=== PATIENT | female | born 1955 | race Caucasian/White ===

== ENCOUNTER 2018-09-17 04:51 | Inpatient (IN) | payer MEDICARE, OTHER ==
[2018-09-17] MEDS ORDERED: Aspirin 325 MG TAB ONE (05:25)
[2018-09-17] MEDS ORDERED: Nitroglycerin 0.4 MG TAB (25 Tab Bottle) ONE (05:25)
[2018-09-17 05:28] LABS: Hemoglobin 14.8 g/dL (12.0-16.0); Mean Corpuscular HGB CONC 34.2 g/dL (32.0-36.0); Mean Corpuscular Hemoglobin 29.7 pg (27.0-31.0); Mean Corpuscular Volume 86.6 fL (78.0-98.0); Mean Platelet Volume 9.4 fL (7.4-10.4); Platelet Count 312 thou/uL (130-400); RBC Distribution Width 11.9 % (11.5-14.5); Red Blood Cell (RBC) Count 4.98 mill/uL (4.20-5.40); White Blood Cell (WBC) Count 27.6 thou/uL (4.8-10.8)
[2018-09-17 05:35] LABS: Band 1 % (5-11); Lymphocytes 3 % (21-51); MDiff Complete? YES; Monocytes 4 % (0-10); Neutrophil 92 % (42-75)
[2018-09-17 05:39] LABS: ALT (SGPT) 77 U/L (8-55); AST (SGOT) 91 U/L (5-34); Albumin 3.8 g/dL (3.4-4.8); Alkaline Phosphatase 163 U/L (40-150); Anion Gap 19 mmol/L (10-20); BUN (Urea Nitrogen) 59 mg/dL (9.8-20.1); Bilirubin, Total 0.7 mg/dL (0.2-1.2); Calc. Creatinine Clearance 0 mL/min (70-130); Carbon Dioxide 15 mmol/L (23-31); Chloride 104 mmol/L (98-107); Estimated GFR-MDRD 23; Globulin 3.8 g/dL (2.4-3.5); Lipase 58 U/L (8-78); Protein, Total 7.6 g/dL (6.0-8.3); Sodium 134 mmol/L (136-145)
[2018-09-17 05:42] LABS: Calcium 13.7 mg/dL (7.8-10.44); Glucose 160 mg/dL (80-115)
[2018-09-17] MEDS ORDERED: DOPamine 400 MG/D5W 250 ML 250 ML ONE (05:56)
[2018-09-17 05:59] LABS: CKMB 13.7 ng/mL (0-6.6)
[2018-09-17] MEDS ORDERED: Heparin 10,000 UNITS/ 10 ML VIAL SLOW IVP SCH (06:45)
[2018-09-17 06:46] LABS: INR-International Normal Ratio 1.2; Prothrombin Time 15.4 SEC (12.0-14.7)
[2018-09-17 06:51] LABS: PTT 22.2 SEC (22.9-36.1)
[2018-09-17] MEDS ORDERED: traMADol HCl 50 MG TAB PO PRN (07:35)
[2018-09-17] MEDS ORDERED: Nitroglycerin 0.4 MG TAB (25 Tab Bottle) SL PRN (07:35)
[2018-09-17] MEDS ORDERED: Acetaminophen/Codeine 30-300mg Tablet PO PRN (07:35)
[2018-09-17] MEDS ORDERED: Sodium Chloride 0.9% 200 ML IV PRN (07:45)
[2018-09-17] MEDS ORDERED: Sodium Chloride 0.9% 1,000 ML IV SCH (07:45)
--- NOTE | 2018-09-17 08:19 | HP ---
CHIEF COMPLAINT: Shortness of breath. HISTORY OF PRESENT ILLNESS: Ms. Erazo is a pleasant 63-year-old white female who comes to the hospital for shortness of breath. Her symptoms started on Thursday. She became short of breath and lightheaded, felt diaphoretic, vomiting and nausea. She did not come to the hospital at that time. She just kind of went through it. The next day, she was still somewhat dizzy, but her shortness of breath began to get worse and worse. On Thursday, just 2 days ago, she was so short of breath that she has had to go see one of the physicians in her town at [place] and she had a chest x-ray done and was told she may have bronchitis and was placed on antibiotics. She then continued to get even more short of breath. Last evening, she noted that she could not even sleep because she was so short winded, so she decided to come in for evaluation. In the ER, an EKG was done and she was found to have what appeared to be an inferior ST-elevation AR and complete heart block. She denies any chest pain, tightness or pressure and a sensation of diaphoresis and nausea that she had on Thursday, she has not had since. She has only been shortness of breath. On her arrival, her troponin was already at 40 and her inferior leads already queued up. PAST MEDICAL HISTORY: Seasonal allergies. PAST SURGICAL HISTORY: 1. Cholecystectomy. 2. Tubal ligation. SOCIAL HISTORY: Former smoker, quit a long time ago. No alcohol or drugs. OUTPATIENT MEDICATIONS: 1. Doxycycline given to her recently. 2. Methylprednisolone DosePak given to her recently. 3. ProAir given to her recently. ALLERGIES: NO KNOWN DRUG ALLERGIES. REVIEW OF SYSTEMS: 12-point review of systems was done and was found to be negative other than stated in the history of present illness. PHYSICAL EXAMINATION: VITAL SIGNS: Pulse 38, respiratory rate 20, temperature 98.2, saturating 98% on 2 L nasal cannula, and blood pressure 122/55. GENERAL: Awake, alert, and oriented x3. No distress, sitting up at 45 degrees angle. HEENT: Normocephalic and atraumatic. NECK: Supple. LUNGS: Clear. CARDIOVASCULAR: S1, S2. Heart rate in the 30s to low 40s. No S3 or S4. There is a grade 2/6 systolic murmur at the right upper sternal border. ABDOMEN: Positive bowel sounds. EXTREMITIES: No edema. SKIN: Warm and dry. LABORATORY DATA: Laboratory work was reviewed. She has a white count of 2700, hemoglobin of 14, hematocrit of 43, platelet count 312. Coags were reviewed. Chemistry, troponin 55 with CK-MB of 13, most likely already coming down. Calcium was 13.7. Lactic acid was 2.8. Creatinine is 2.12 with BUN of 59. GFR was 23, albumin of 3.8 and lipase was 58. IMAGING STUDIES: Chest x-ray is not great quality, but appears to be a little volume overload. EKG was reviewed. Complete heart block, sinus tach with third-degree AV block and a junctional escape rhythm. ST elevations in the inferior leads with reciprocal changes with deep Q-waves in the inferior leads. ASSESSMENT: 1. Acute inferior ST-elevation myocardial infarction, very, very late presentation. 2. Third-degree atrioventricular block. 3. Symptomatic bradycardia with shortness of breath, significantly improved after temporary pacemaker placed. PLAN: 1. We will rule out an infectious source before deciding to put in a permanent pacemaker. We will get blood cultures. We will tcontinue to trend her troponins. 2. We will hopefully get her a permanent pacemaker in the next few days once blood cultures have returned negative. 3. She has an occluded RCA, which has good collateral flow from septal branches from the LAD, but she does have a severe lesion on OM, which is fairly good-sized, which will require intervention. At this point, it would be high risk to do an intervention on this non culprit vessel. Would wait at least a month to do this. 4. We will start her on a heparin drip 2 hours after hemostasis. 5. We will start up optimum medical therapy and risk factor modification. 6. Full code. 7. PPI and will be on heparin drip for DVT prophylaxis will be covered. 8. Disposition pending clinical evolution. Job ID: [id number]
--- NOTE | 2018-09-17 09:11 | RAD ---
PORTABLE CHEST: HISTORY: Shortness of breath. FINDINGS: The lungs appear clear of infiltrate. Heart size is upper normal. Vasculature is normal. IMPRESSION: No acute process apparent. POS: OFF
[2018-09-17 09:25] LABS: Hemoglobin 14.4 g/dL (12.0-16.0); Platelet Count 312 thou/uL (130-400)
[2018-09-17] MEDS: Aspirin 81 mg Enteric Coated Tablet PO SCH (10:30)
[2018-09-17 10:39] LABS: Lactic Acid 1.5 mmol/L (0.5-2.2)
[2018-09-17] MEDS: Heparin 10,000 UNITS/ 10 ML VIAL SLOW IVP SCH ×2 (10:48→18:06)
[2018-09-17] MEDS: Heparin 25,000 units/D5W 500 ML IVPB SCH (10:55)
[2018-09-17 10:57] LABS: CKMB 14.7 ng/mL (0-6.6); Troponin I 39.245 ng/mL (< 0.028)
[2018-09-17 11:29] VITALS: BMI 32.6
[2018-09-17] MEDS ORDERED: Iopamidol 370 76% 100 ML VIAL ONE (13:22)
[2018-09-17 13:50] LABS: Troponin I 40.703 ng/mL (< 0.028)
[2018-09-17] MEDS: Acetaminophen/Codeine 30-300mg Tablet PO PRN (21:07)
[2018-09-17] MEDS: Atorvastatin Calcium 40 MG TAB PO SCH (21:07)
[2018-09-18] MEDS: Heparin 10,000 UNITS/ 10 ML VIAL SLOW IVP SCH ×2 (02:16→20:09)
[2018-09-18] MEDS: Heparin 25,000 units/D5W 500 ML IVPB SCH (05:56)
[2018-09-18 07:00] LABS: #Lymphocytes 1.7 thou/uL (1.20-3.40); #Monocytes 1.3 thou/uL (0.11-0.59); #Neutrophils 11.7 thou/uL (1.40-6.50); %Basophils 0.1 % (0.0-1.0); %Eosinophils 0.2 % (0.0-10.0); %Lymphocytes 11.7 % (21.0-51.0); %Monocytes 8.6 % (0.0-10.0); %Neutrophils 79.3 % (42.0-75.0); Hemoglobin 13.1 g/dL (12.0-16.0); Mean Corpuscular HGB CONC 33.2 g/dL (32.0-36.0); Mean Corpuscular Volume 90.5 fL (78.0-98.0); Mean Platelet Volume 9.4 fL (7.4-10.4); Platelet Count 265 thou/uL (130-400); Red Blood Cell (RBC) Count 4.36 mill/uL (4.20-5.40); White Blood Cell (WBC) Count 14.7 thou/uL (4.8-10.8)
[2018-09-18 07:02] LABS: Anion Gap 12 mmol/L (10-20); BUN (Urea Nitrogen) 57 mg/dL (9.8-20.1); Calc. Creatinine Clearance 61 mL/min (70-130); Carbon Dioxide 20 mmol/L (23-31); Cardiac Risk 4.5 (Less than 4.5); Chloride 107 mmol/L (98-107); Cholesterol 158 mg/dl (< 200 Desired); Estimated GFR-MDRD 38; Glucose 87 mg/dL (80-115); HDL Cholesterol 35 mg/dL (>60 Neg Risk); LDL Cholesterol, Calculated 98 mg/dL; Potassium 4.1 mmol/L (3.5-5.1); Sodium 135 mmol/L (136-145); Triglycerides 124 mg/dL (Less than 150)
[2018-09-18 07:10] LABS: Calcium 12.6 mg/dL (7.8-10.44)
--- NOTE | 2018-09-18 07:33 | PDOC.CTH ---
Cardiology Progress Note - Subjective No complaints. Afebrile overnight. No CP, SOB - Objective Vital Signs Temp 09/18/18 04:00 97.9 F 09/18/18 00:00 98.5 F 09/17/18 20:00 98.7 F Admit Weight 208 lb 8.917 oz Weight 211 lb 6.773 oz 09/17/18 09/18/18 09/19/18 06:59 06:59 06:59 Intake Total 1804 Output Total 1400 Balance 404 - Physical Examination General/Neuro: alert & oriented x3, NAD Neck: carotid US brisk, no JVD present Lungs: CTA, unlabored respirations Heart: PMI normal, RRR Abdomen: NT/ND, soft Extremities: + femoral B - Labs Result Diagrams: 09/18/18 06:14 09/18/18 06:16 Troponin/CKMB CK-MB (CK-2) 14.7 ng/mL (0-6.6) H* 09/17/18 09:58 Troponin I 40.703 ng/mL (< 0.028) H* 09/17/18 13:07 - Assessment/Plan AMI 3rd degree AVB s/p temp pacer Fever leukocytosis On ASA, heparin Awaiting BC; if negative recommend permanent pacer Hold BB for now On statin WBC count lower today Doing well overall
[2018-09-18 07:35] LABS: Free T4 (Free Thyroxine) 1.05 ng/dL (0.70-1.48)
[2018-09-18 07:36] LABS: Thyroid Stimulating Hormone 0.7819 uIU/mL (0.35-4.94)
[2018-09-18] MEDS: Aspirin 81 mg Enteric Coated Tablet PO SCH (08:42)
[2018-09-18] MEDS ORDERED: Prevnar 13-Val Conj/PF 0.5 ML SYRINGE IM ONE (09:00)
--- NOTE | 2018-09-18 11:28 | CON ---
DATE OF CONSULTATION: 09/18/2018 SERVICE: Pulmonary Medicine. REASON FOR CONSULT: ICU patient. HISTORY OF PRESENT ILLNESS: The patient is a 63-year-old white female with past medical history significant for coronary artery disease. She was in her usual state of health until she started having onset of nausea and a swimming sensation that started on Thursday. She was seen by primary care physician. She was treated for acute bronchitis, but things got worse and not better. Ultimately, she presented to the emergency department on . She was discovered to have an acute myocardial infarction, but it appeared to have occurred a couple of days prior. She had a bradyarrhythmia. A transcutaneous pacing device was placed and she immediately started feeling better. She denies any current fevers, chills, nausea, or vomiting over the last 24 hours, though she does note a low-grade temperature on presentation to the hospital. Since she has been here, she has been completely asymptomatic. She is not having any nausea or vomiting. She is tolerating p.o. Otherwise, she is returning to her usual state of health. PAST MEDICAL HISTORY: 1. Coronary artery disease. 2. Seasonal allergies. PAST SURGICAL HISTORY: 1. Cholecystectomy. 2. Tubal ligation. SOCIAL HISTORY: Negative for alcohol, tobacco, or illicit drug use. She has less than a 30 pack-year history of smoking. She has no exposure to chemicals, dust, asbestos, or tuberculosis. FAMILY HISTORY: Noncontributory. ALLERGIES: NO KNOWN DRUG ALLERGIES. MEDICATIONS: List of her inpatient medications was reviewed. No specific updates were made. REVIEW OF SYSTEMS: General, head, ears, eyes, nose, throat, cardiovascular, respiratory, GI, , musculoskeletal, neurologic, and skin are negative except as mentioned in the HPI. PHYSICAL EXAMINATION: VITAL SIGNS: Afebrile, pulse 80, blood pressure 95/63, respirations 13, saturation 97% on room air. GENERAL: The patient is awake and alert, in no apparent distress. LUNGS: Excellent air entry without any prolonged expiratory phase, wheezing, rhonchi, or crackles. HEART: Normal rate, regular. ABDOMEN: Soft, nontender, and nondistended. Bowel sounds are positive. MUSCULOSKELETAL: No cyanosis or clubbing. No pitting in the bilateral lower extremities. NEUROLOGIC: Grossly nonfocal. LABORATORY DATA: WBC 14.7, hemoglobin 13.1, platelets 265,000. INR 1.2, PTT 111. Creatinine 1.40 and beautifully downtrending, BUN 57, bicarb 20, anion gap 12, sodium 135. BNP 932, TSH falls within the normal limits. Troponin is roughly stable. Blood cultures x2 are unremarkable. IMAGIN. Echocardiogram demonstrates 50% to 55% ejection fraction and inferior hypokinesis. Mild dilation of the right ventricle with reduced RV systolic function. 2. Chest x-ray demonstrates no acute cardiopulmonary abnormality. ASSESSMENT: 1. Acute myocardial infarction. 2. Third-degree heart block. 3. Possible infectious prodrome. DISCUSSION AND PLAN: We are awaiting negative blood cultures. If they remain negative, she is going to go for a pacemaker. Pulmonary and Critical Care will continue to follow along while she remains in this location. She is completely pacemaker dependent. As such, she will need to remain in the ICU clearly. I will continue to follow along. 70 minutes have been devoted to this patient in various activities. I personally reviewed all imaging studies and laboratory data noted within this document. For fifty percent of this time, I was interacting with the patient at the bedside or coordinating care with the care team. For the remainder of the time I was immediately available to the patient in the hospital unit. Job ID: [id number] [facility]
[2018-09-18] MEDS: Atorvastatin Calcium 40 MG TAB PO SCH (20:08)
[2018-09-19 05:12] LABS: #Eosinphils 0.1 thou/uL (0.0-0.7); #Lymphocytes 1.9 thou/uL (1.20-3.40); #Monocytes 1.1 thou/uL (0.11-0.59); #Neutrophils 7.6 thou/uL (1.40-6.50); %Basophils 0.1 % (0.0-1.0); %Lymphocytes 17.5 % (21.0-51.0); %Neutrophils 71.4 % (42.0-75.0); Hemoglobin 12.5 g/dL (12.0-16.0); Mean Corpuscular HGB CONC 32.9 g/dL (32.0-36.0); Mean Corpuscular Hemoglobin 29.7 pg (27.0-31.0); Mean Corpuscular Volume 90.3 fL (78.0-98.0); Mean Platelet Volume 8.6 fL (7.4-10.4); Platelet Count 240 thou/uL (130-400); RBC Distribution Width 11.8 % (11.5-14.5); Red Blood Cell (RBC) Count 4.22 mill/uL (4.20-5.40); White Blood Cell (WBC) Count 10.6 thou/uL (4.8-10.8)
[2018-09-19 05:30] LABS: Anion Gap 9 mmol/L (10-20); BUN (Urea Nitrogen) 46 mg/dL (9.8-20.1); Calc. Creatinine Clearance 65 mL/min (70-130); Carbon Dioxide 21 mmol/L (23-31); Chloride 107 mmol/L (98-107); Estimated GFR-MDRD 41; Glucose 100 mg/dL (80-115); Potassium 3.4 mmol/L (3.5-5.1); Sodium 134 mmol/L (136-145)
--- NOTE | 2018-09-19 09:31 | PRG ---
DATE OF SERVICE: 09/19/2018 SERVICE: Pulmonary Medicine. INTERVAL HISTORY: The patient is doing poorly from respiratory standpoint. Denies any current chest pain, fevers, chills, nausea, vomiting, or diarrhea. She is just a little bit restless because she is stuck in bed. She is perfectly reasonable and understands why she is here. Otherwise, there has been no interval change to her condition. PHYSICAL EXAMINATION: VITAL SIGNS: Afebrile, pulse 79, respirations 9, saturation 96% on room air, blood pressure 89/62. HEENT: Normocephalic and atraumatic. Sclerae white. Conjunctivae pink. Oral mucosa is moist without lesions. LUNGS: Decent air entry. There is no prolonged expiratory phase or wheezing present. No crackles are appreciated. HEART: Normal rate, regular. ABDOMEN: Soft, nontender, and nondistended. Bowel sounds are positive. MUSCULOSKELETAL: No cyanosis or clubbing. No pitting in the bilateral lower extremities. NEUROLOGIC: Grossly nonfocal. LABORATORY DATA: WBC 10.6, hemoglobin 12.5, platelets 240,000. Potassium 3.4, creatinine 1.3, and BUN 46. Basic metabolic profile is otherwise unremarkable/improving. Calcium has improved to 12.0. BNP 932. Blood cultures x2 are unremarkable. ASSESSMENT: 1. Acute myocardial infarction. 2. Third-degree heart block. 3. Infectious prodrome, resolved completely. DISCUSSION AND PLAN: The culture results are negative to date. She is demonstrating no additional evidence of systemic inflammatory response. From my perspective, she would be a candidate for a pacemaker placement today or tomorrow. Pulmonary will continue to follow along in this location. Eventually, when she arrives on the floor, I will sign off. Please call with additional questions or concerns through time. Job ID: [id number]
[2018-09-19] MEDS: Aspirin 81 mg Enteric Coated Tablet PO SCH (10:40)
--- NOTE | 2018-09-19 12:26 | PRG ---
DATE OF SERVICE: 09/19/2018 SUBJECTIVE: Ms. Erazo is doing well. No current complaints. She is resting comfortably. I assessed her temporary pacemaker. Her threshold appears to be appropriate. She appears to be in a second-degree type 1 AV block. She is hemodynamically stable. OBJECTIVE: VITAL SIGNS: Blood pressure 90/58, pulse 58, respirations 20. LUNGS: Clear to auscultation. HEART: Regular rate and rhythm. ABDOMEN: Soft, nontender, and nondistended. EXTREMITIES: No edema. PERTINENT LABORATORY DATA: Creatinine 1.3, sodium 134, potassium 3.4, otherwise within normal limits. IMPRESSION: 1. Recent myocardial infarction. 2. Third-degree AV block. RECOMMENDATIONS: Ms. Erazo appears to stabilize from a rhythm standpoint. We will await blood cultures. At this point, we will defer pacemaker. She appears to be in a second-degree type 1 AV block. We will continue to assess her hemodynamics. She may not require a pacemaker. We will keep n.p.o. after midnight. Job ID: [id number]
[2018-09-19] MEDS ORDERED: Sodium Chloride 0.9% 500 ML IVPB SCH (15:30)
[2018-09-19] MEDS ORDERED: Heparin 25,000 units/D5W 500 ML IVPB SCH (15:30)
[2018-09-19] MEDS: Atorvastatin Calcium 40 MG TAB PO SCH (20:38)
[2018-09-19] MEDS: Acetaminophen/Codeine 30-300mg Tablet PO PRN (22:29)
[2018-09-19] MEDS: Sodium Chloride 0.9% 1,000 ML IV SCH (22:33)
[2018-09-20 05:27] LABS: Hemoglobin 12.3 g/dL (12.0-16.0)
[2018-09-20 05:36] LABS: Phosphorus 2.7 mg/dL (2.3-4.7)
[2018-09-20 05:38] LABS: Anion Gap 12 mmol/L (10-20); BUN (Urea Nitrogen) 37 mg/dL (9.8-20.1); Calc. Creatinine Clearance 83 mL/min (70-130); Calcium 11.9 mg/dL (7.8-10.44); Carbon Dioxide 18 mmol/L (23-31); Chloride 111 mmol/L (98-107); Estimated GFR-MDRD 54; Glucose 102 mg/dL (80-115); Magnesium 1.1 mg/dL (1.6-2.6); Potassium 3.9 mmol/L (3.5-5.1); Sodium 137 mmol/L (136-145)
[2018-09-20] MEDS: Sodium Chloride 0.9% 1,000 ML IV SCH ×3 (08:56→20:04)
[2018-09-20] MEDS: Aspirin 81 mg Enteric Coated Tablet PO SCH (08:56)
[2018-09-20] MEDS ORDERED: Iopamidol 370 76% 50 ML VIAL FS ONE (12:09)
--- NOTE | 2018-09-20 12:49 | PDOC.CTH ---
Cardiology Progress Note - Subjective She is doing well. She had several episodes overnight were she was pacer dependant for long periods of time and she was wide awake. No other issues, no chest pain. - Objective Vital Signs Temp Pulse Resp BP Pulse Ox 09/20/18 11:28 56 L 16 114/62 09/20/18 08:00 98.3 F 99 09/20/18 07:00 98.3 F 09/20/18 04:00 97.8 F Admit Weight 208 lb 8.917 oz Weight 212 lb 15.465 oz 09/19/18 09/20/18 09/21/18 06:59 06:59 06:59 Intake Total 2001 2381 0 Output Total 1200 1450 300 Balance 802 931 -300 - Physical Examination General/Neuro: alert & oriented x3, NAD Neck: no JVD present Lungs: CTA, unlabored respirations Heart: RRR Abdomen: NT/ND Extremities: other: (no edema.) - Telemetry Telemetry Rhythm: NSR - Labs Result Diagrams: 09/20/18 05:05 09/20/18 05:05 Troponin/CKMB CK-MB (CK-2) 14.7 ng/mL (0-6.6) H* 09/17/18 09:58 Troponin I 40.703 ng/mL (< 0.028) H* 09/17/18 13:07 - Assessment/Plan 1. Acute inferior STEMI, very late presentation. 2. Occluded RCA, severe OM disease, tortuous LCx. 3. 3rd degree AV block PLAN: - Will plan for PPM today as she went back into [facility] overnight. Currently in NSR with normal conduction. - Continue aspirin and statin for life. - Will add BB once PPM in place.
[2018-09-20] MEDS ORDERED: CEFAZOLIN 1 GM VIAL ONE (15:34)
[2018-09-20] MEDS ORDERED: Gentamicin 80 MG/2 ML VIAL ONE (15:34)
[2018-09-20] MEDS ORDERED: CEFAZOLIN 2 GM/50 ML BAG ONE (15:35)
[2018-09-20] MEDS ORDERED: Midazolam HCl 2 mg/2 ml Vial ONE (15:55)
[2018-09-20] MEDS ORDERED: Lidocaine 1% (PF) 30 ML VIAL ONE (16:10)
--- NOTE | 2018-09-20 17:30 | EKG ---
Test Reason : Blood Pressure : / mmHG Vent. Rate : 058 BPM Atrial Rate : 080 BPM P-R Int : 000 ms QRS Dur : 078 ms QT Int : 400 ms P-R-T Axes : 077 -09 190 degrees QTc Int : 392 ms Sinus rhythm with 2nd degree A-V block (Mobitz I) with occasional ventricular-paced complexes Inferior infarct , possibly acute Anterior infarct , age undetermined T wave abnormality, consider lateral ischemia ACUTE MD / STEMI Consider right ventricular involvement in acute inferior infarct Abnormal ECG No previous ECGs available Confirmed by EMMY GREWAL, DR. Colon ([id number]) on 09/20/2018 5:30:21 PM Referred By: PABLO Confirmed By:DR. Isaiah BOOTH MD
[2018-09-20] MEDS ORDERED: Ondansetron HCl/PF 4 MG/2 ML Vial IVP PRN (17:38)
[2018-09-20] MEDS ORDERED: Promethazine HCl 25 MG/ML VIAL IM/IV PRN (17:38)
[2018-09-20] MEDS ORDERED: Non-Formulary Medication 1 EACH PO PRN (17:38)
[2018-09-20] MEDS ORDERED: Fentanyl 100 MCG/2 ML VIAL ONE (17:39)
[2018-09-20] MEDS ORDERED: Sodium Chloride 0.9% 10 ML ONE (17:41)
--- NOTE | 2018-09-20 18:13 | CCL ---
CARDIOLOGY PROCEDURE NOTE: Date: 09/20/18 INDICATION FOR PROCEDURE: 63-year-old female suffered a myocardial infarction and then developed intermittent third degree AV h eart block with bradycardia. She was advised to undergo dual chamber pacemaker insertion. PROCEDURE: Dual chamber pacemaker insertion. PROCEDURE DETAILS: The patient was taken to the cardiac chemical lab supervisor, where she underwent the procedure today without diffic ulties or complications. She was implanted with a dual chamber pacemaker from [employer]. This is a MR I-compatible device. Two screw-in leads were placed, one in the atrium and one in the ventricle. Pace maker was placed underneath the right infraclavicular area. There were no complications or difficulti es encountered. We did use IV contrast for visualization of the right subclavian vein prior to placem ent of the leads. The patient also was given 2 mg of Versed for conscious sedation during the procedu re. Throughout the procedure, she was monitored by an independent observer present for heart rate, bl ood pressure, and O2 saturation, and these remained stable.
--- NOTE | 2018-09-20 18:39 | RAD ---
AP VIEW CHEST: HISTORY: Status post cardiac device placement. COMPARISON: 09/25/2018 TECHNIQUE: AP view chest is obtained. FINDINGS: AP view chest demonstrates placement of a dual-lead intracardiac pacing device. The course of the le ads is in good position. No evidence of post placement hemothorax or pneumothorax seen. Mild pulmonary vascular congestion is seen. No evidence of pneumonia seen. IMPRESSION: 1. Status post right subclavian intracardiac pacer placement. 2. No evidence of post procedure pathology seen. POS: MIGUEL
[2018-09-20] MEDS: Carvedilol 3.125 MG TAB PO SCH (20:01)
[2018-09-20] MEDS: Atorvastatin Calcium 40 MG TAB PO SCH (20:03)
[2018-09-20] MEDS: Acetaminophen/Codeine 30-300mg Tablet PO PRN (20:22)
--- NOTE | 2018-09-20 22:50 | RAD ---
AP VIEW CHEST: 09/20/2018 HISTORY: Post cardiac device placement. COMPARISON: 09/17/2018 TECHNIQUE: AP chest obtained. FINDINGS: AP view chest demonstrates placement of a dual-lead right subclavian intracardiac pacing device. Atr ial and ventricular leads are in good position. Mild pulmonary vascular congestion is seen. No evid ence of effusions or pneumonia seen. IMPRESSION: Placement of a dual-lead right subclavian intracardiac pacing device. POS: ARTHUR
[2018-09-21 06:10] LABS: Phosphorus 2.9 mg/dL (2.3-4.7)
[2018-09-21 06:20] LABS: Anion Gap 12 mmol/L (10-20); BUN (Urea Nitrogen) 29 mg/dL (9.8-20.1); Calc. Creatinine Clearance 72 mL/min (70-130); Calcium 11.8 mg/dL (7.8-10.44); Carbon Dioxide 16 mmol/L (23-31); Chloride 108 mmol/L (98-107); Estimated GFR-MDRD 47; Glucose 107 mg/dL (80-115); Potassium 4.1 mmol/L (3.5-5.1); Sodium 132 mmol/L (136-145)
[2018-09-21] MEDS ORDERED: Magnesium Sulfate 4 GM in Sodium Chloride 0.9% 250 ML 250 ML IVPB SCH (07:30)
[2018-09-21] MEDS: Sodium Chloride 0.9% 1,000 ML IV SCH (07:40)
--- NOTE | 2018-09-21 08:52 | DIS ---
DATE OF ADMISSION: 09/17/2018 DATE OF DISCHARGE: 09/21/2018 PRIMARY DIAGNOSES: 1. Inferior ST-elevation myocardial infarction, very, very late presentation. 2. Complete heart block. 3. Coronary artery disease. PROCEDURES PERFORMED: 1. Left heart catheterization. 2. Echocardiogram. 3. Placement of permanent pacemaker. SUMMARY: Ms. Erazo is a pleasant 63-year-old white female, who came to the hospital for increasing shortness of breath for the last week. She was diagnosed with an inferior ST elevations on EKG, so Cardiology was consulted emergently. She probably had her NE about a week prior to presentation and presented with worsening shortness of breath in the setting of complete heart block, heart rate was in the 30s. She was taken to the catheterization lab, where she was found to have an occluded right, which is very well collateralized from the left. She was treated medically for this as her troponin was already downtrending when she presented. She was pain free and her EF was normal at 60%. She had a temporary pacemaker placed as well for a complete heart block. Eventually, she regained some of her function on her AV node; however, she did have episodes of complete heart block at night while awake, so she underwent a permanent pacemaker placement by Dr. Penny. Yesterday, she did well. Today, she is doing better. She denies any chest pain, tightness, or pressure. She has not had any chest pain since she came in. She has been walking around without issues. Her pacer site looks intact and without issues. We will plan on discharging her home today. We have added Plavix, beta-afsaneh, and MARISELA inhibitor regimen. DISCHARGE MEDICATIONS: 1. Aspirin 81 a day. 2. Plavix 75 mg a day. 3. Atorvastatin 80 mg a day. 4. Coreg 3.125 b.i.d. 5. Lisinopril 2.5 half tablet daily. FOLLOWUPS: 1. In 1 month, with myself. 2. In 1 week, in [facility] for wound check. 3. Cardiac rehab. TIME SPENT: Over 30 minutes was spent at bedside counseling for discharge. Job ID: [id number]
[2018-09-21] MEDS: Carvedilol 3.125 MG TAB PO SCH (08:54)
[2018-09-21] MEDS: Aspirin 81 mg Enteric Coated Tablet PO SCH (08:54)
[2018-09-21] MEDS ORDERED: Lisinopril 2.5 MG TAB PO SCH (09:00)
[2018-09-21] MEDS ORDERED: Clopidogrel Bisulfate 75 MG TAB PO SCH (09:00)
--- NOTE | 2018-09-21 09:03 | PRG ---
DATE OF SERVICE: 09/20/2018 INTERVAL HISTORY: The patient is doing fine from respiratory standpoint. She is awaiting possible pacemaker placement. She is going to be talking to Dr. Hernández, here soon enough. Denies any chest pain, nausea, or vomiting. She does not having any lightheadedness or swimming sensation. OBJECTIVE: VITAL SIGNS: Afebrile, pulse 80, blood pressure 120/66, respirations 18, and saturation 99% on room air. GENERAL: The patient is awake and alert, in no apparent distress. LUNGS: Excellent air entry. There is no prolonged expiratory phase or wheezing present. HEART: Normal rate and regular. ABDOMEN: Soft, nontender, and nondistended. Bowel sounds are positive. MUSCULOSKELETAL: No cyanosis or clubbing. No pitting in the bilateral lower extremities. NEUROLOGIC: Grossly nonfocal. LABORATORY DATA: Hemoglobin 12.3. Basic metabolic profile is completely unremarkable with a creatinine of 1.01. Magnesium 1.1. Phosphorus 2.7. Blood cultures x2 are unremarkable. IMAGING DATA: Chest x-ray demonstrates placement of dual lead right subclavian pacing device. No pneumothorax or pulmonary vascular congestion is otherwise identified. ASSESSMENT: 1. Acute myocardial infarction. 2. Third-degree heart block, intermittent. 3. Infectious prodromes, resolved. DISCUSSION AND PLAN: The patient has gone down for pacemaker. At this point, she is stable for transition out of the ICU to the telemetry unit. I will replace the magnesium. When she lays on the floor, she will have no further requirements for inpatient Pulmonary/Critical Care opinion, and I will sign off. Please call with additional questions or concerns moving forward. Job ID: [id number]
--- NOTE | 2018-09-21 09:26 | EKG ---
Test Reason : ROUTINE Blood Pressure : / mmHG Vent. Rate : 069 BPM Atrial Rate : 069 BPM P-R Int : 200 ms QRS Dur : 092 ms QT Int : 364 ms P-R-T Axes : 075 -20 -52 degrees QTc Int : 390 ms Normal sinus rhythm Voltage criteria for left ventricular hypertrophy Inferior infarct , age undetermined Anterolateral infarct , age undetermined Abnormal ECG When compared with ECG of 19-SEP-2018 09:10, Sinus rhythm has replaced Electronic ventricular pacemaker Confirmed by DR. Hamzah OGLESBY ([id number]) on 09/21/2018 9:26:39 AM Referred By: Sherice STEWART Confirmed By:DR. Hamzah OGLESBY
--- NOTE | 2018-09-21 09:27 | EKG ---
Test Reason : Blood Pressure : / mmHG Vent. Rate : 073 BPM Atrial Rate : 073 BPM P-R Int : 178 ms QRS Dur : 088 ms QT Int : 352 ms P-R-T Axes : 050 -20 -53 degrees QTc Int : 387 ms Normal sinus rhythm Moderate voltage criteria for LVH, may be normal variant Inferior infarct (cited on or before 19-SEP-2018) Abnormal ECG When compared with ECG of 21-SEP-2018 05:07, (Unconfirmed) Criteria for Anterior infarct are no longer Present Criteria for Anterolateral infarct are no longer Present Confirmed by DR. Hamzah OGLESBY ([id number]) on 09/21/2018 9:27:26 AM Referred By: PAT Confirmed By:DR. Hamzah OGLESBY
[2018-09-21 11:28] VITALS: BP 106/56; TEMP 98.1
== END 2018-09-21 15:18 | disposition home or self-care (01) | DRG 243 ==
LOC: SCSER 04:51 → ERS 06:12 → CCU 06:12 → CCL 06:32 → CCU 10:36 → 2NO 09-20 18:54
PROVIDERS: ADMIT Internal Medicine Cardiovascular Disease; ATTEND Internal Medicine Cardiovascular Disease
PROC: 4A023N7 Measurement of Cardiac Sampling and Pressure, Left Heart, Percutaneous Approach (ICD-10-PCS; 2018-09-17)
PROC: B2111ZZ Fluoroscopy of Multiple Coronary Arteries using Low Osmolar Contrast (ICD-10-PCS; 2018-09-17)
PROC: B2151ZZ Fluoroscopy of Left Heart using Low Osmolar Contrast (ICD-10-PCS; 2018-09-17)
PROC: 5A1223Z Performance of Cardiac Pacing, Continuous (ICD-10-PCS; 2018-09-17)
PROC: 0JH606Z Insertion of Pacemaker, Dual Chamber into Chest Subcutaneous Tissue and Fascia, Open Approach (ICD-10-PCS; principal; 2018-09-20)
PROC: 02HK3JZ Insertion of Pacemaker Lead into Right Ventricle, Percutaneous Approach (ICD-10-PCS; 2018-09-20)
PROC: 02H63JZ Insertion of Pacemaker Lead into Right Atrium, Percutaneous Approach (ICD-10-PCS; 2018-09-20)
DX: I21.19 ST elevation (STEMI) myocardial infarction involving other coronary artery of inferior wall (principal); I44.2 Atrioventricular block, complete; I25.10 Atherosclerotic heart disease of native coronary artery without angina pectoris; R00.1 Bradycardia, unspecified; Z87.891 Personal history of nicotine dependence
CPT/HCPCS: 33208; 33210; 36415; 71045; 80048; 80053; 80061; 82553; 83605; 83690; 83735; 83880; 84100; 84439; 84443; 84481; 84484; 85014; 85018; 85025; 85610; 85730; 86850; 86900; 86901; 93005; 93010; 93306; 93458; 93798; 94760; 99152; 99153; 99285; C1769; C1785; C1898; J0690; J1265; J1580; J1644; J2001; J2250; J3010; J3475; J7050; Q9967

== ENCOUNTER 2021-05-27 09:57 | Outpatient (CLI) | payer MEDICARE, OTHER ==
[2021-05-27] MEDS ORDERED: Iopamidol 370 76% 100 ML VIAL ONE (10:48)
== END 2021-05-27 09:58 | disposition home or self-care (01) ==
LOC: CT 09:57
PROVIDERS: ATTEND Obstetrics & Gynecology Gynecologic Oncology
DX: C54.1 Malignant neoplasm of endometrium (principal); R91.1 Solitary pulmonary nodule
CPT/HCPCS: 71260; 82565; Q9967

== ENCOUNTER 2022-02-03 10:49 | Outpatient (CLI) | payer MEDICARE, OTHER ==
[2022-02-03 13:22] LABS: #Basophils 0.1 10x3/uL (0.0-0.2); #Eosinphils 0.3 10x3/uL (0.0-0.5); #Monocytes 0.4 10x3/uL (0.0-1.1); #Neutrophils 5.8 10x3/uL (1.5-8.4); %Basophils 0.9 % (0.0-2.0); %Eosinophils 3.1 % (0.0-6.0); %Lymphocytes 19.4 % (18.0-47.0); %Monocytes 5.2 % (0.0-10.0); Hemoglobin 13.9 g/dL (12.0-15.5); Mean Corpuscular HGB CONC 32.9 g/dL (32.0-36.0); Mean Corpuscular Hemoglobin 29.6 pg (27.0-33.0); Mean Corpuscular Volume 90.2 fl (81.6-98.3); Platelet Count 198 10x3/uL (150-450); RBC Distribution Width 13.4 % (11.5-14.5); Red Blood Cell (RBC) Count 4.69 10x6/uL (3.90-5.03); White Blood Cell (WBC) Count 8.1 10x3/uL (3.5-10.5)
[2022-02-03 13:50] LABS: ALT (SGPT) 11 U/L (8-55); AST (SGOT) 15 U/L (5-34); Albumin 4.2 g/dL (3.4-4.8); Alkaline Phosphatase 222 U/L (40-110); Anion Gap 16 mmol/L (10-20); BUN (Urea Nitrogen) 24 mg/dL (9.8-20.1); Calc. Creatinine Clearance 0 mL/min (70-130); Carbon Dioxide 18 mmol/L (23-31); Chloride 109 mmol/L (98-107); Globulin 3.1 g/dL (2.4-3.5); Glucose 102 mg/dL (80-115); Potassium 3.8 mmol/L (3.5-5.1); Protein, Total 7.3 g/dL (5.8-8.1); Sodium 139 mmol/L (136-145)
[2022-02-03 13:58] LABS: Calcium 13.1 mg/dL (7.8-10.44)
== END 2022-02-03 10:50 | disposition home or self-care (01) ==
LOC: LABBT 10:49
PROVIDERS: ATTEND Emergency Medicine
DX: Z01.812 Encounter for preprocedural laboratory examination (principal); Z20.822 Contact with and (suspected) exposure to COVID-19
CPT/HCPCS: 80053; 85025; U0003; U0005

== ENCOUNTER 2022-02-05 06:09 | Day surgery (SDC) | payer MEDICARE, OTHER ==
[2022-01-31 14:29] VITALS: BMI 29.5
[2022-02-05] MEDS ORDERED: Lidocaine 1% (PF) 30 ML VIAL ONE (06:30)
[2022-02-05 07:18] LABS: Cardiac Risk 3.4 (Less than 4.5)
[2022-02-05] MEDS ORDERED: Midazolam HCl 2 mg/2 ml Vial ONE (07:22)
[2022-02-05] MEDS ORDERED: Fentanyl 100 MCG/2 ML VIAL ONE (07:23)
[2022-02-05] MEDS ORDERED: Iopamidol 370 76% 100 ML VIAL ONE (07:42)
[2022-02-05] MEDS ORDERED: Heparin 10,000 UNITS/ 10 ML VIAL ONE (07:43)
[2022-02-05] MEDS ORDERED: Aspirin Chewable 81 MG TAB ONE (08:16)
== END 2022-02-05 13:00 | disposition home or self-care (01) ==
LOC: CCL 06:09
PROVIDERS: ATTEND Internal Medicine Cardiovascular Disease
PROC: 4A023N7 Measurement of Cardiac Sampling and Pressure, Left Heart, Percutaneous Approach (ICD-10-PCS; principal; 2022-02-05)
PROC: B2111ZZ Fluoroscopy of Multiple Coronary Arteries using Low Osmolar Contrast (ICD-10-PCS; 2022-02-05)
DX: I25.118 Atherosclerotic heart disease of native coronary artery with other forms of angina pectoris (principal); I25.82 Chronic total occlusion of coronary artery; I44.2 Atrioventricular block, complete; I25.2 Old myocardial infarction; I10 Essential (primary) hypertension; E78.2 Mixed hyperlipidemia; Z87.891 Personal history of nicotine dependence; Z79.82 Long term (current) use of aspirin; Z79.899 Other long term (current) drug therapy; Z88.2 Allergy status to sulfonamides; Z95.0 Presence of cardiac pacemaker
CPT/HCPCS: 36415; 80061; 85347; 93454; 99152; 99153; C1769; J1644; J2001; J2250; J3010; Q9967

== ENCOUNTER 2022-07-08 10:30 | Outpatient (CLI) | payer MEDICARE, OTHER | END 2022-07-08 10:31 | disposition home or self-care (01) | LOC: CT 10:30 | PROVIDERS: ATTEND Urology | DX: N28.89 Other specified disorders of kidney and ureter (principal); N28.1 Cyst of kidney, acquired; N20.0 Calculus of kidney; K44.9 Diaphragmatic hernia without obstruction or gangrene; R91.1 Solitary pulmonary nodule | CPT/HCPCS: 74178; 82565 ==

== ENCOUNTER 2022-12-24 09:08 | Outpatient (CLI) | payer MEDICARE, OTHER | END 2022-12-24 09:09 | disposition home or self-care (01) | LOC: NM 09:08 | PROVIDERS: ATTEND Specialist | DX: E21.3 Hyperparathyroidism, unspecified (principal) | CPT/HCPCS: 78072; A9500 ==

== ENCOUNTER 2023-02-03 09:32 | Outpatient (CLI) | payer MEDICARE, OTHER ==
[2023-02-03 10:53] LABS: Hemoglobin 12.4 g/dL (12.0-15.5); Mean Corpuscular Hemoglobin 29.3 pg (27.0-33.0); Mean Corpuscular Volume 91.7 fl (81.6-98.3); Mean Platelet Volume 10.4 fl (7.4-10.4); Platelet Count 215 10x3/uL (150-450); RBC Distribution Width 13.7 % (11.5-14.5); Red Blood Cell (RBC) Count 4.23 10x6/uL (3.90-5.03); White Blood Cell (WBC) Count 7.8 10x3/uL (3.5-10.5)
[2023-02-03 11:19] LABS: Anion Gap 13 mmol/L (10-20); BUN (Urea Nitrogen) 28 mg/dL (9.8-20.1); Calc. Creatinine Clearance 0 mL/min (70-130); Calcium 12.6 mg/dL (7.8-10.44); Carbon Dioxide 17 mmol/L (23-31); Chloride 109 mmol/L (98-107); Estimated GFR 27; Glucose 100 mg/dL (80-115); Potassium 4.2 mmol/L (3.5-5.1); Sodium 135 mmol/L (136-145)
== END 2023-02-03 09:33 | disposition home or self-care (01) ==
LOC: LABBT 09:32
PROVIDERS: ATTEND Specialist
DX: Z01.818 Encounter for other preprocedural examination (principal); D35.1 Benign neoplasm of parathyroid gland
CPT/HCPCS: 80048; 85027; 93005; 93010

== ENCOUNTER 2024-02-10 09:35 | Outpatient (CLI) | payer MEDICARE, OTHER | END 2024-02-10 09:36 | disposition home or self-care (01) | LOC: BICCT 09:35 | PROVIDERS: ATTEND Nurse Practitioner Family | DX: C54.1 Malignant neoplasm of endometrium (principal) | CPT/HCPCS: 71250; 74177; 82565 ==